=== PATIENT | male | born 2000 | race Caucasian/White ===

== ENCOUNTER 2019-08-05 23:18 | Emergency (ER) | payer SELFPAY ==
[2019-08-05 23:38] VITALS: BP 145/115; PULSE 123; RESP 18; TEMP 37.1; O2SAT 96
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
[2019-08-06 00:14] VITALS: RESP 18
[2019-08-06] MEDS: HYDROmorphone 1 mg/mL INJ 1 mL 1.5 MG IVP (00:14)
[2019-08-06] MEDS: ondansetron 2 mg/ML SDV 2 mL 4 MG IVP (00:14)
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
[2019-08-06 01:06] VITALS: BP 134/87; PULSE 87; RESP 18; TEMP 36.9; O2SAT 98
--- NOTE | 2019-08-08 15:46 | DCPLANNER ---
inside sales manager had message to schedule a followup appointment for patient with ortho. inside sales manager called the ortho clinic, spoke with Pat. gave clinic patients information. inside sales manager was told that patients information would be printed and reviewed. Clinic will call casework specialist and patient with appointment information.
--- NOTE | 2019-08-10 14:15 | DCPLANNER ---
Patient had an appointment scheduled for 08.09.19 with ortho, patient did attend the appointment.
== END 2019-08-06 01:09 | disposition home or self-care (01) ==
PROVIDERS: Emergency Provider Emergency Medicine; PCP Pediatrics Adolescent Medicine
DX: S42.022A Displaced fracture of shaft of left clavicle, initial encounter for closed fracture (principal); F10.120 Alcohol abuse with intoxication, uncomplicated; Y90.9 Presence of alcohol in blood, level not specified; F17.210 Nicotine dependence, cigarettes, uncomplicated
CPT/HCPCS: 12345; 70450; 71045; 72125; 73000; 96374; 96375; 99282; 99283; J1170; J2405

== ENCOUNTER 2019-08-11 06:18 | Day surgery (SDC) | payer SELFPAY ==
[2019-08-10 09:59] VITALS: BMI 23.4
[2019-08-11] VITALS (7 sets, daily range): BP systolic 114–141; BP diastolic 66–90; PULSE 86–118; RESP 13–18; TEMP 36.6; O2SAT 18–99
--- NOTE | 2019-08-11 | SCC_ITS ---
Procedure Done: Open reduction internal fixation left comminuted midshaft clavicle fracture utilizing the [place] 8 hole left clavicle plate 17.5 seconds of fluoroscopic guidance, for a cumulative dose of 1.16 mGy, was provided to Dr. Saenz by the radiology department. C-arm images of the LEFT clavicle were saved for the patient's permanent record. [facility]
--- NOTE | 2019-08-11 | XR_ITS ---
WS: [id number] C-ARM RADIOGRAPHS LEFT CLAVICLE; 3 IMAGES HISTORY: ORIF CLAVICLE COMPARISON: 08/05/2019 Intraoperative plate and screw fixation of a comminuted fracture in the mid LEFT clavicle. Fracture n ow in good position and alignment. XR/[place] [id number] IMPRESSION: Intraoperative fixation mid LEFT clavicle fracture in good alignment.
--- NOTE | 2019-08-11 06:58 | P.HPUD_ITS ---
Surgery/Procedure H&P Update DATE OF PROCEDURE: August 11, 2019 DATE H&P PERFORMED: 08/09/19 H&P UPDATE INFORMATION: I have reviewed H&P completed within last 30 days, I have examined patient prior to procedure and H&P is in [facility] [place] on date indicated PREOP DIAGNOSIS: Comminuted midshaft left clavicle fracture PLANNED PROCEDURE: Operation Date: 08/11/19 08:20 Proposed Procedures p ORIF Clavicle 93349 S42.009A(Left) - Yazmin Saenz MD
--- NOTE | 2019-08-11 07:13 | ANES.PREANE2 ---
Pre-Anesthetic Assessment Pre-Anesthetic Assessment: Height/Weight: Height 1.73 m Weight 69.853 kg Temp Pulse Resp BP Pulse Ox 97.8 F 86 18 133/90 99 08/11/19 06:35 08/11/19 06:35 08/11/19 06:35 08/11/19 06:35 08/11/19 06:35 Preop Diagnosis: Comminuted midshaft left clavicle fracture Proposed Procedure: Operation Date: 08/11/19 08:20 Proposed Procedures p ORIF Clavicle 98050 S42.009A(Left) - Yazmin Saenz MD Last intake: Intake Last Liquid Date 08/10/19 Last Liquid Time 23:00 Last Solid Date 08/10/19 Last Solid Time 23:00 Social: Social History: Alcohol and Tobacco Exam: Pre-Anes Outpt Exam: alert, oriented x 3, clear to auscultation bilaterally and regular rate & rhythm Airway: Submandibular: WNL Cervical ROM: WNL MP: 2 Dentition: Other (teeth ok) History/ROS: No significant history except as noted Pulmonary: Pulmonary: None reported CV/HEM: CV/HEM: None reported : : None reported Hepatic: Hepatic: None reported GI: GI: None reported Metabolic: Metabolic: None reported Musc/skel: Musc/skel: None reported Neuropsych: Neuropsych: None reported Anesthetic Plan: ASA status: 2 Anesthesia: Anesthesia Evaluation, Eval. for regional block and General Risk of > 500 ml blood loss (7ml/kg in children): No PFSH Anesthesia PFSH: Family History Denies family history of Psychiatric illness Suicide Anesthesia complication Bleeding disorder Social History Smoking and tobacco status: current every day smoker Second hand smoke exposure: Yes Alcohol intake: current Alcohol intake frequency: other Current gender identity: Male Data Anesthesia Cardiac Studies: No Data to Display
[2019-08-11] MEDS: sodium chloride 0.9% 1,000 ML 30 ML IV (07:32)
[2019-08-11] MEDS: fentaNYL 50 mcg/mL INJ 2mL 100 MCG IVP (08:15)
--- NOTE | 2019-08-11 08:49 | ANES.PROC ---
Anesthesia Procedures Procedure/Date: 08/11/19 Nerve Block ^: Nerve Block 1: Main Anesthesia: general anesthesia Time Out Performed: Yes Consent: requested by attending/covering physician, risks and benefits reviewed and patient agrees to proceed Nerve block location: interscalene (left) Anesthesia monitors applied: pulse oximetry, EKG, BP cuff and oxygen Nerve block position: semi sitting Anesthetic Used: ropivicaine 0.5% and with decadron (4mg) Amount of anesthesia used (mL): 30 Ultrasound used to: recognize landmarks Nerve Stimulator Used?: Yes Interscalene/Femoral BLK: 2 stimuplex 22 g needle used for position and inplane approach and visualize local anesthetic spread Injection: neg aspiration of heme (initially, repositioned the needle and then neg asp) Patient Tolerated Procedure: well Complications: none
[2019-08-11] MEDS: ceFAZolin 1,000 mg SDV 1000 MG IRRIGATION (09:27)
[2019-08-11] MEDS: midazolam 1 mg/mL INJ 2 mL 2 MG IVP (09:39)
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
== END 2019-08-11 11:49 | disposition home or self-care (01) ==
PROVIDERS: PCP Pediatrics Adolescent Medicine; Visit Provider Specialist
PROC: (CPT 23515; principal; 2019-08-11 08:10)
DX: S42.022A Displaced fracture of shaft of left clavicle, initial encounter for closed fracture (principal); X58.XXXA Exposure to other specified factors, initial encounter; F17.210 Nicotine dependence, cigarettes, uncomplicated
CPT/HCPCS: 23515; 12345; 73000; 76000; 96374; 96375; C1713; J0690; J1100; J2250; J2370; J2704; J2795; J3010; J3490; J7030

== ENCOUNTER → 2019-08-28 10:58 | Outpatient (BNVA) | payer SELFPAY | PROVIDERS: PCP Pediatrics Adolescent Medicine; Visit Provider Specialist | DX: S42.022A Displaced fracture of shaft of left clavicle, initial encounter for closed fracture (principal); X58.XXXA Exposure to other specified factors, initial encounter | CPT/HCPCS: 73000 ==

== ENCOUNTER → 2019-11-29 11:58 | Outpatient (BNVA) | payer SELFPAY | PROVIDERS: PCP Pediatrics Adolescent Medicine; Visit Provider Specialist | DX: S42.022A Displaced fracture of shaft of left clavicle, initial encounter for closed fracture (principal) | CPT/HCPCS: 73000 ==

== ENCOUNTER 2019-12-29 12:48 | Outpatient (CLI) | payer SELFPAY ==
--- NOTE | 2019-12-29 12:52 | CT_ITS ---
WS: [id number] CT FACIAL BONES HISTORY: INJURY TO FACE AND NOSE TECHNIQUE: Images obtained from the supraorbital location through the mandible. Soft tissue and bone windows are reviewed. Coronal and sagittal reformats have also been submitted. DLP: 804.[address] scans at [facility] use at least one of these dose optimization techniques: automat ed exposure control; mA and/or kV adjustment per patient size (includes targeted exams where dose is matched to clinical indication); or iterative reconstruction. COMPARISON: None available. LEFT orbital blowout fracture. There is a fracture in the floor the LEFT orbit with the fracture bein g by approximately 3 mm. Fracture extends to involve significant portion of the floor. Ther e is adjacent soft tissue edema and mucoperiosteal thickening in the LEFT maxillary sinus. The LEFT i nferior rectus muscle is slightly larger than the RIGHT suggesting there may be some adjacent hematom a. There is no entrapment of the rectus muscle. Lamina papyracea is intact. No additional fracture no nasal bone fracture. Zygomatic arches are normal. CT/CT facial bones wo con* [id number] IMPRESSION: 1. Minimally displaced blowout fracture involving the floor of the LEFT orbit. 2. No entrapment of the inferior rectus muscle although the LEFT rectus muscle is larger than the RIGHT suggesting an acute injury. Probably adjacent edema a nd probable possible adjacent hematoma.
== END 2019-12-29 12:49 | disposition home or self-care (01) ==
LOC: RAD 12:50
PROVIDERS: Visit Provider Nurse Practitioner Family
DX: S02.32XA Fracture of orbital floor, left side, initial encounter for closed fracture (principal); S09.92XA Unspecified injury of nose, initial encounter; X58.XXXA Exposure to other specified factors, initial encounter
CPT/HCPCS: 70486

== ENCOUNTER 2020-01-19 09:25 | Outpatient (CLI) | payer SELFPAY ==
--- NOTE | 2020-01-19 09:32 | XR_ITS ---
WS: [id number] Right hand, 3 views, 01/19/2020 Clinical Data: R HAND PAIN Comparison: None. Findings: There is a transverse fracture of the midshaft of the right fourth metacarpal. There is apollo joanne displacement of the distal fracture fragment. The remainder of the hand is unremarkable. XR/XR hand RT min 3V* [id number] Impression: Fracture of mid shaft of right fourth metacarpal.
== END 2020-01-19 09:26 | disposition home or self-care (01) ==
LOC: RAD 09:29
PROVIDERS: Visit Provider Internal Medicine
DX: S62.324A Displaced fracture of shaft of fourth metacarpal bone, right hand, initial encounter for closed fracture (principal); X58.XXXA Exposure to other specified factors, initial encounter
CPT/HCPCS: 73130

== ENCOUNTER → 2020-04-10 12:09 | Outpatient (BNVA) | payer SELFPAY | PROVIDERS: Visit Provider Specialist | DX: S62.309A Unspecified fracture of unspecified metacarpal bone, initial encounter for closed fracture (principal); S62.324A Displaced fracture of shaft of fourth metacarpal bone, right hand, initial encounter for closed fracture | CPT/HCPCS: 73130 ==

== ENCOUNTER 2023-03-16 11:57 | Emergency (ER) | payer SELFPAY ==
[2023-03-16 12:08] VITALS: BP 146/94; PULSE 70; TEMP 36.6; O2SAT 99; BMI 26.9
== END 2023-03-16 15:59 | disposition home or self-care (01) ==
PROVIDERS: Emergency Provider Family Medicine
DX: Z53.21 Procedure and treatment not carried out due to patient leaving prior to being seen by health care provider (principal)
CPT/HCPCS: 99281

== ENCOUNTER 2023-03-16 18:09 | Emergency (ER) | payer SELFPAY ==
[2023-03-16 18:30] VITALS: BP 118/27; PULSE 67; RESP 18; TEMP 36.6; O2SAT 99; BMI 26.6
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
[2023-03-16 19:54] VITALS: BP 119/72; PULSE 72; RESP 14; O2SAT 99
== END 2023-03-16 19:55 | disposition home or self-care (01) ==
PROVIDERS: Emergency Provider Emergency Medicine
DX: S09.8XXA Other specified injuries of head, initial encounter (principal); Z72.0 Tobacco use; V86.56XA Driver of dirt bike or motor/cross bike injured in nontraffic accident, initial encounter
CPT/HCPCS: 70450; 99284

== ENCOUNTER → 2023-08-24 09:00 | Outpatient (BNVA) | payer SELFPAY | PROVIDERS: Visit Provider Student in an Organized Health Care Education/Training Program | DX: S42.022A Displaced fracture of shaft of left clavicle, initial encounter for closed fracture (principal); T84.84XA Pain due to internal orthopedic prosthetic devices, implants and grafts, initial encounter; Y79.2 Prosthetic and other implants, materials and accessory orthopedic devices associated with adverse incidents; X58.XXXA Exposure to other specified factors, initial encounter | CPT/HCPCS: 73000 ==